=== PATIENT | female | born 1980 | race Caucasian/White ===

== ENCOUNTER 2021-08-14 11:33 | Emergency (ER) | payer SELFPAY ==
[2021-08-14] MEDS ORDERED: TETANUS,DIPH,PERTUSS(ACELL) VACCINE 0.5 ML SYRINGE IM ONE (12:40)
[2021-08-14] MEDS ORDERED: HYDROcodone/ACETAMINOPHEN 5-325 MG TAB PO STA (12:46)
--- NOTE | 2021-08-14 13:59 | Emergency Department Report ---
ED Animal Bite HPI - General Chief Complaint: Animal Bite Stated Complaint: CUT HAND Time Seen by Provider: 08/14/21 12:38 Source: patient Mode of arrival: Ambulatory Limitations: No Limitations - History of Present Illness Initial Comments: 41-year-old female admitted home complaining of being bitten in right hand by dog around 930 today prior to arrival. States she does not know the animal but the animal control was notified and will review the animal to determine the need for rabies. She is not quite sure why the bite occurred but states that animal did not appear sick or overly vicious. Pain is dull and throbbing in the right hand she reports still full range of motion no numbness or tingling. MD Complaint: animal bite -: Sudden Right: Hand (Bite venu occurred around the thenar eminence) Animal: dog Animal Control Notified: Yes Mechanism: bite Pain Description: dull Associated Symptoms: bleeding - Related Data Patient Tetanus UTD: No Previous Rx's Medication Instructions Recorded Last Taken Type Chlorhexidine Gluconate [Hibiclens] 10 ml TP BID #240 liquid 08/14/21 Unknown Rx DOXYCYCLINE Hyclate [Vibramycin 100 mg PO BID #28 capsule 08/14/21 Unknown Rx CAP] Ketorolac [Toradol] 10 mg PO Q6H PRN #15 tablet 08/14/21 Unknown Rx Allergies Allergy/AdvReac Type Severity Reaction Status Date / Time Penicillins Allergy Unknown Verified 08/14/21 11:41 ED Review of Systems ROS: Stated complaint: CUT HAND Other details as noted in HPI Comment: All other systems reviewed and negative ED Past Medical Hx - Past Medical History Previous Medical History?: Yes Hx Hypertension: Yes - Surgical History Past Surgical History?: No - Medications Home Medications: Home Medications Medication Instructions Recorded Confirmed Last Taken Type Chlorhexidine Gluconate [Hibiclens] 10 ml TP BID #240 liquid 08/14/21 Unknown Rx DOXYCYCLINE Hyclate [Vibramycin 100 mg PO BID #28 capsule 08/14/21 Unknown Rx CAP] Ketorolac [Toradol] 10 mg PO Q6H PRN #15 tablet 08/14/21 Unknown Rx ED Physical Exam - General Limitations: No Limitations General appearance: alert, in no apparent distress - Head Head exam: Present: atraumatic, normocephalic - Eye Eye exam: Present: normal appearance - ENT ENT exam: Present: mucous membranes moist - Neck Neck exam: Present: normal inspection - Respiratory Respiratory exam: Present: normal lung sounds bilaterally. Absent: respiratory distress - Cardiovascular Cardiovascular Exam: Present: regular rate, normal rhythm. Absent: systolic murmur, diastolic murmur, rubs, gallop - GI/Abdominal GI/Abdominal exam: Present: soft, normal bowel sounds - Extremities Exam Extremities exam: Present: normal inspection, tenderness - Expanded Upper Extremity Exam Right Hand Wrist exam: Present: tenderness, other (Puncture wound in the area of the thenar eminence) Hand L/R Front: 1 - Positive: other (Puncture wound to this region with scant bleeding. Full range of motion is noted of the thumb. No ecchymosis or significant swelling present) Hand L/R Back: 1 - Puncture wound to this region capillary refills of the - Back Exam Back exam: Present: normal inspection - Neurological Exam Neurological exam: Present: alert, oriented X3 - Psychiatric Psychiatric exam: Present: normal affect, normal mood - Skin Skin exam: Present: warm, dry, intact, normal color. Absent: rash ED Course Vital Signs 08/14/21 11:38 Temperature 98.7 F Pulse Rate 75 Respiratory 18 Rate Blood Pressure 154/90 O2 Sat by Pulse 98 Oximetry Critical care attestation.: If time is entered above; I have spent that time in minutes in the direct care of this critically ill patient, excluding procedure time. ED Disposition Clinical Impression: Dog bite, Puncture wound of hand, right, Tetanus toxoid inoculation Disposition: HOME / SELF CARE / HOMELESS Is pt being admited?: No Does the pt Need Aspirin: No Condition: Stable Instructions: Animal Bite, Adult, [id number], Wound Care, Adult, VIS, Tetanus, Diphtheria (Td); Tetanus, Diphtheria, Pertussis (Tdap) - [facility], Animal Bite, Adult Prescriptions: Chlorhexidine Gluconate [Hibiclens] 10 ml TP BID #240 liquid Ketorolac [Toradol] 10 mg PO Q6H PRN #15 tablet PRN Reason: Pain DOXYCYCLINE Hyclate [Vibramycin CAP] 100 mg PO BID #28 capsule Referrals: [facility] [Provider Group] - 3-5 Days
--- NOTE | 2021-08-14 14:19 | XRay Report ---
XR hand 3+V RT INDICATION / CLINICAL INFORMATION: dog bite. COMPARISON: None available. FINDINGS: No acute fracture. Normal alignment. Joint spaces are preserved. No destructive osseous lesion or s uspicious periosteal reaction. Impression: 1.No acute fracture. Signer Name: Felipe Lehman MD Signed: 08/14/2021 2:14 PM Workstation Name: [id number]
[2021-08-14 14:22] VITALS: BP 124/68
== END 2021-08-14 14:25 | disposition home or self-care (01) ==
LOC: ED 11:33
DX: S61.431A Puncture wound without foreign body of right hand, initial encounter (principal); W54.0XXA Bitten by dog, initial encounter; Y93.89 Activity, other specified; Y92.89 Other specified places as the place of occurrence of the external cause; Y99.8 Other external cause status
CPT/HCPCS: 90471; 90715; 99283